=== PATIENT | male | born 1960 | race Caucasian/White ===

== ENCOUNTER → 2020-08-17 09:11 | Outpatient (CLI) | payer OTHER, SELFPAY ==
[2020-08-17 10:30] LABS: Alanine Aminotransferase 18 IU/L (<50); Albumin 4.4 g/dL (3.5-5.0); Albumin Globulin Ratio 1.3 (1.0-2.8); Alkaline Phosphatase 72 U/L (38-126); Aspartate Aminotransferase 23 IU/L (17-59); BUN Creatinine Ratio 23.1 (6-22); Bilirubin Total 0.6 mg/dL (0.2-1.3); Blood Urea Nitrogen 25 mg/dL (9-20); Calcium 9.5 mg/dL (8.4-10.2); Carbon Dioxide 29 mmol/L (22-32); Chloride 107 mmol/L (98-107); Cholesterol 166 mg/dL (140-199); Estimated Glomerular Filt Rate > 60.0 mL/min (>60); Globulin 3.4 g/dL (1.7-4.1); Glucose 103 mg/dL (80-110); HDL Cholesterol 33 mg/dL (40-60); HEMOLYSIS < 15 (0-50); LDL Cholesterol Calculated 123 mg/dL (<100); Potassium 4.6 mmol/L (3.4-5.1); Sodium 141 mmol/L (137-145); Total Protein 7.8 g/dL (6.3-8.2); Triglycerides 51 mg/dL (35-150)
[2020-08-17 10:59] LABS: Prostate Specific Antigen 0.707 ng/mL (0.10-4.00)
== END ==
PROVIDERS: PCP Family Medicine; Referring Provider Internal Medicine; Visit Provider Internal Medicine
DX: E78.2 Mixed hyperlipidemia (principal); Z85.46 Personal history of malignant neoplasm of prostate
CPT/HCPCS: 36415; 80053; 80061; 84153

== ENCOUNTER → 2020-11-15 11:03 | Outpatient (CLI) | payer OTHER, SELFPAY ==
[2020-11-15 12:19] LABS: COVID19 -Nasal RAPID Negative (Negative)
== END ==
PROVIDERS: PCP Internal Medicine; Visit Provider Specialist
DX: Z20.822 Contact with and (suspected) exposure to COVID-19 (principal)
CPT/HCPCS: 87635; C9803

== ENCOUNTER 2020-11-17 06:31 | Day surgery (SDC) | payer OTHER, SELFPAY ==
[2020-11-17] VITALS (9 sets, daily range): BP systolic 97–131; BP diastolic 56–70; PULSE 52–65; RESP 10–14; TEMP 36.2–36.4; O2SAT 93–98; BMI 25.4
--- NOTE | 2020-11-17 07:20 | SUR.OPER ---
Lithotomy on padded OR bed, head on pillow, arms secured on padded arm boards at <90 degrees abduction. Legs secured in padded yellow fins stirrups.
--- NOTE | 2020-11-17 07:22 | PM.PREOP ---
Pre-operative Note Interval Note History & Physical reviewed/Exam performed by Physician: Yes Changes to H&P: No
[2020-11-17] MEDS: LACTATED RINGERS 500 ML 25 ML IV (07:32)
[2020-11-17] MEDS: CEFAZOLIN 2 GM/100 ML FROZ.PIGGY IV (07:50)
[2020-11-17] MEDS: BELLADONNA/OPIUM SUPPOSITORIES 1 EACH PR (08:28)
--- NOTE | 2020-11-17 08:37 | P.OP_ITS ---
Operative Date/Time/Diagnoses Date of procedure: 11/17/20 Time of procedure: 08:37 Pre-op diagnosis: 1. Membranous urethral stricture 2. History of prostate cancer status post external beam radiotherapy Post-op diagnosis: same Procedure & Clinicians Procedure: 1. Cystoscopy and dilation urethral stricture 2. Complicated catheter placement Same procedure as scheduled: Yes Indications: 1. Membranous urethral stricture 2. History of prostate cancer status post external beam radiotherapy Surgeon: Tara Mckeon Click Yes if Unassisted: Yes Anesthesia Type: General Operative Notes Findings: 1. Normal caliber penile bulbar urethra. There mucosal changes consistent with radiation effect at the external sphincter. The membranous urethra was essentially occluded with a pinpoint aperture visualized. 2. Prostate-3.5 cm length with mild lateral lobe hyperplasia. 3. Bladder 1 to 2+ trabeculation with moderate amount free-floating cloudy sediment debris. No stone or tumor seen. Ureteral orifices normal position bilaterally. Closure Type: not applicable Specimen(s): none sent Applied: catheter (20 [place]orean silicone catheter modified to [place] tip) Estimated Blood Loss (mL): 1 Procedure in detail: Patient was positioned in supine and administered general anesthesia. He was then repositioned semi-lithotomy and the lower abdomen, groin, and genitalia were prepped and draped in sterile fashion. The 22 Ecuadorean panendoscope with 12 degree lens was then advanced and lower urinary tract with the findings as described above. A 0.35, floppy tip, super stiff guidewire was then advanced through the working port of the endoscope over this a 5 Ecuadorean pollock catheter was advanced to help stabilize the floppy tip. The guidewire with overlying [place] was then gently advanced proximally passing it through the strictured web. It was then advanced further for a generous coil to lie within the bladder. The panendoscope open [place] catheter was then backloaded off the guidewire. The serpentine urethral dilators were then utilized, starting at 12 Ecu[place]orean and successively dilating up to 20 Ecuadorean. The guidewire was then front loaded into the beak of the scope and the scope was advanced over the wire and advanced more proximally with the findings as described above. The scope was then used to gently fulcrum to the right, to the left, anterior, and posterior. The panendoscope was then backloaded off the guidewire. A [place] tip modification of a 20 [place]orean silicone catheter was then performed. Catheter was then advanced over the guidewire, the balloon was filled to 10 cc and the bladder contents were drained. The guidewire was then withdrawn and removed. The catheter was attached to gravity drainage. The patient was then repositioned in supine, was awakened, and was transferred to [facility] in stable condition. Post-operative Condition: stable Disposition: PACU Plan for aftercare: Discharge home
--- NOTE | 2020-11-17 09:56 | SUR.PHASEII ---
D/C instructions reviewed with SO. Stressed the importance of him not operating any vehicles including his boat. Instructions for leg bag provided along with ETOH wipes for cleaning tubing. Pt escorted to ED entrance in stable condition.
== END 2020-11-17 09:56 | disposition home or self-care (01) ==
PROVIDERS: PCP Internal Medicine; Referring Provider Specialist; Visit Provider Specialist
PROC: 0TJB8ZZ Inspection of Bladder, Via Natural or Artificial Opening Endoscopic (ICD-10-PCS; CPT 52000; principal; 2020-11-17 07:45)
DX: N35.913 Unspecified membranous urethral stricture, male (principal); Z85.46 Personal history of malignant neoplasm of prostate; N40.1 Benign prostatic hyperplasia with lower urinary tract symptoms; R35.0 Frequency of micturition; R35.1 Nocturia; R39.15 Urgency of urination
CPT/HCPCS: 52344; J0690; J1100; J2250; J2405; J2704; J3010

== ENCOUNTER → 2020-11-24 08:27 | Outpatient (CLI) | payer OTHER, SELFPAY ==
[2020-11-24 08:49] LABS: COVID19 -Nasal RAPID Negative (Negative)
== END ==
PROVIDERS: PCP Internal Medicine; Visit Provider Specialist
DX: Z20.822 Contact with and (suspected) exposure to COVID-19 (principal)
CPT/HCPCS: 87635; C9803

== ENCOUNTER → 2021-07-13 08:21 | Outpatient (CLI) | payer OTHER, SELFPAY | PROVIDERS: PCP Internal Medicine; Referring Provider Specialist; Visit Provider Specialist | DX: Z85.46 Personal history of malignant neoplasm of prostate (principal) | CPT/HCPCS: 36415; 84153 ==

== ENCOUNTER → 2022-08-01 08:47 | Outpatient (CLI) | payer OTHER, SELFPAY ==
[2022-08-01 10:25] LABS: Prostate Specific Antigen 0.982 ng/mL (0.10-4.00)
== END ==
PROVIDERS: PCP Internal Medicine; Referring Provider Specialist; Visit Provider Specialist
DX: R39.9 Unspecified symptoms and signs involving the genitourinary system (principal)
CPT/HCPCS: 36415; 84153

== ENCOUNTER 2022-11-05 09:18 | Day surgery (SDC) | payer OTHER, SELFPAY ==
--- NOTE | 2022-11-05 | PATH_ITS ---
[facility] Accession Number: [id number] No. of containers..01 Tissue . 01 Material submitted: . colon - SIGMOID MASS . 01 Clinical history: . SDC . 01 Diagnosis: Sigmoid Colon, Mass, Biopsy: Inflammatory polyp with superficial erosion and reactive changes consistent with trauma/prolapse. Negative for dysplasia and malignancy. MRV 11/11/2022 1605 Local . 01 Comment: A few large reactive lymphoid aggregates are present. This case was also reviewed by Dr. Sparks and Dr. Weems, who agree with the interpretation of a reactive lymphoid hyperplasia. Additional levels were examined. . 01 Electronically signed: . Franchesca Padilla MD, Pathologist NPI- [id number] . 01 Gross description: . SIGMOID MASS: Received in formalin are multiple fragment(s) of cody, soft tissue measuring 1.7 x 1.5 x 0.1 cm in aggregate submitted entirely in 1 cassette(s) /CPE 11/06/2022 0700 Local . 01 Pathologist provided ICD-10: Z12.11 . 01 CPT . 020487 Specimen Comment: A courtesy copy of this report has been sent to [phone] Performed at: 01 [facility] [address] [place] [address] [address], [place], [place] [id number] MD Antonino Bojorquez MD Phone: [phone]
[2022-11-05 10:07] VITALS: BMI 25.0
[2022-11-05 10:27] VITALS: BP 118/68; PULSE 64; RESP 16; TEMP 36.6; O2SAT 97
[2022-11-05] MEDS: LACTATED RINGERS 1,000 ML 200 ML IV (10:31)
--- NOTE | 2022-11-05 10:45 | PM.HP.1 ---
History of Present Illness History of Present Illness Date Patient Seen: 11/05/22 Time Patient Seen: 10:46 Chief complaint: MEC Narrative: The patient presents for colorectal screening. They have never had any previous examination for such. No personal or family history of colon cancer. On further history denies any recent gastrointestinal symptoms. No nausea, vomiting, abdominal pain, loss of appetite, unexplained weight loss, change in bowel habits, or blood per rectum. Patient History Medical History Diverticular disease of colon Erectile dysfunction following radiation therapy H/O renal calculi Hemorrhoid History of malignant neoplasm of prostate (08/01/16) History of urethral stricture Lower urinary tract symptoms (LUTS) Membranous urethral stricture Surgical History History of lithotripsy S/P radiation therapy (~2013) Family & Social History Family History Father Cancer Hypertension Mother Stroke Social History: household members significant other Tobacco & Substance use: Tobacco type cannabis/marijuana Smoking Status Current some day smoker alcohol intake never Substance Use Type marijuana Meds Home Medications and Allergies Home Medications Medication Instructions Recorded Confirmed Type alfuzosin 10 mg tablet,extended See Rx Instructions .Route 10/07/22 11/05/22 Rx release 24 hr .COMPLEX #90 tabs Allergies Allergy/AdvReac Type Severity Reaction Status Date / Time Sulfa (Sulfonamide Allergy Severe I break Verified 11/05/22 10:03 Antibiotics) out, I [SULFA (SULFONAMIDE don't know ANTIBIOTICS)] what happened, it doesn't work for Exam Vital Signs (past 8 hours): - 11/05/22 10:27 Temperature 97.8 F Pulse Rate 64 Respiratory Rate 16 Blood Pressure 118/68 Pulse Oximetry 97 Oxygen Delivery Method Room Air Oxygen Delivery Method Room Air Narrative Exam Narrative: General adult man alert oriented no acute distress Abdomen soft nontender nondistended Assessment & Plan Assessment & Plan narrative: The patient requires colorectal screening and colonoscopy is recommended. Technical details were discussed. Risks, benefits, alternatives explained. Risks including but not limited to myocardial infarction, aspiration, bleeding, pain, missed lesion, incomplete examination, need for further radiographic studies, colonic perforation, and need for major abdominal surgery were discussed. All questions were answered to their satisfaction, and they are in agreement with this plan. Time Spent With Patient Critical Care time: I spent a total of [] minutes of critical care time on this patient's care today; this time is exclusive of procedural time.
--- NOTE | 2022-11-05 10:46 | PM.OP.COLON ---
Operative Date/Time/Diagnoses Date of procedure: 11/05/22 Time of procedure: 10:46 Pre-op diagnosis: Colorectal screening Post-op diagnosis: other (Colon cancer) Procedure & Clinicians Study performed: Sigmoidoscopy Same procedure as scheduled: Yes Indications: Colorectal screening Surgeon: Valentino Muñoz Procedure Notes Procedure in detail: The history and physical was performed/updated and the patient is ASA class is 2. The procedure was discussed in detail with the patient. Potential risks complications including infection, bleeding, missed diagnosis, perforation, need for surgery, and were explained. Their questions were answered and informed consent was obtained. Patient was brought to the procedure room and placed standard monitoring equipment. The patient's vital signs were monitored continuously throughout the entire procedure. Prior to starting time-out was performed. The patient was placed in the left lateral recumbent position. Procedural sedation was administered by anesthesia. Examination began with a thorough inspection of the perianal area there was no evidence of fissures, fistulae, external hemorrhoids or cutaneous malignancy. The colonoscopy scope was then placed into the anal canal and was advanced forward. At 20 cm from the anal verge there was a large obstructing mass. Was friable portions of it were removed with electrocautery. I was unable to advance the scope beyond this level. The area distal to the tattoo was infiltrated with 3 mL of Stacey ink. The patient tolerated the procedure well. They will be discharged once criteria are met. The prep was of good/excellent quality. The withdrawl time was * minutes. Specimen(s): other (Sigmoid mass) Impression: Concerning for colon cancer Post-procedure Recommendations: High fiber diet Plan for aftercare: Follow-up in surgical office within the next 2 weeks Disposition: same day surgery
[2022-11-05 11:11] VITALS: BP 92/58; PULSE 51; RESP 12; TEMP 36.6; O2SAT 96
[2022-11-05 11:16] VITALS: BP 99/63; PULSE 50; RESP 11; TEMP 36.6; O2SAT 96
[2022-11-05 11:21] VITALS: BP 107/70; PULSE 46; RESP 10; TEMP 36.6; O2SAT 95
[2022-11-05 11:32] VITALS: BP 134/81; PULSE 45; RESP 11; TEMP 36.4; O2SAT 96
== END 2022-11-05 12:27 | disposition home or self-care (01) ==
PROVIDERS: PCP Internal Medicine; Referring Provider Surgery; Visit Provider Surgery
PROC: 0DJD8ZZ Inspection of Lower Intestinal Tract, Via Natural or Artificial Opening Endoscopic (ICD-10-PCS; CPT 45378; principal; 2022-11-05 10:30)
DX: Z12.11 Encounter for screening for malignant neoplasm of colon (principal); K63.5 Polyp of colon
CPT/HCPCS: 45384; J2704; J3010

== ENCOUNTER → 2022-11-07 10:37 | Outpatient (CLI) | payer OTHER, SELFPAY ==
--- NOTE | 2022-11-07 10:39 | DI.CT.S_ITS ---
PROCEDURE: CT CHEST ABD PEL W CON INDICATIONS: Other specified diseases of intestine TECHNIQUE: After the administration of oral and intravenous contrast, axial sections acquired from the supraclavicular neck to the pubic symphysis. Coronal and sagittal reformats were performed. For radiation dose reduction, the following was used: automated exposure control, adjustment of mA and/or kV according to patient size. COMPARISON: [facility], CT, PELVIS WITHOUT CONTRAST, 11/19/2007, 12:48. FINDINGS: Image quality: Excellent. CHEST: Lower Neck: No enlarged lymph nodes. Thyroid: Within normal limits. Axillae: No enlarged lymph nodes. Chest Wall: Unremarkable. Lungs and Airways: No consolidation or suspicious nodules. Mild apically predominant emphysema. 6 mm left apically pulmonary nodule. Subpleural sessile nodule within the left lower lobe posteriorly measuring 7 mm transverse by 3 mm anteroposterior. Pleura: No pneumothorax or pleural effusions. Heart: Heart size is normal. No pericardial effusion. Mild calcification of the coronary vasculature. Thoracic Vessels: Mild fusiform aneurysmal dilatation of the ascending thoracic aorta measuring 46 mm. Mediastinum and Khadijah: No enlarged lymph nodes. Esophagus: No wall thickening. No hiatal hernia. ABDOMEN: Liver: Unremarkable. Gallbladder: Unremarkable. Biliary ducts: Unremarkable. Pancreas: Unremarkable. Spleen: Unremarkable. Adrenal Glands: Unremarkable. Kidneys and Ureters: Bilateral renal cysts. No hydronephrosis. Stomach and Bowel: Stomach and small bowel are within normal limits. There is moderate focal thickening within the descending/sigmoid colon junction with an apparent region of superimposed nodularity measuring 15 mm. Peritoneum: No abnormal intraperitoneal fluid. No free air. Ventral Wall: No hernia. Abdominal Nodes: No retroperitoneal or mesenteric adenopathy by size criteria. Vessels: Aorta and inferior vena cava are normal in size. PELVIS: Pelvic Organs: Unremarkable. Bladder: There is thickening of the left superior urinary bladder, as before. No further evidence of colovesical fistula formation. Pelvic Nodes: No enlarged lymph nodes. Miscellaneous: No inguinal hernias are seen. Bones: Unremarkable. IMPRESSION: 1. Apparent resolution of colovesical fistula. 2. Nodular thickening of the descending/sigmoid colon junction. Colonoscopy is recommended to assess for neoplasm. 3. Left urinary bladder thickening. 4. Pulmonary nodules. Follow-up is recommended as below. 5. Coronary artery disease. 6. Ascending thoracic aortic aneurysm. Fleischner Society criteria for SOLID lung nodule followup. Nodule size (mm)Low-risk patientHigh-risk patient<6 (single or multiple)No routine followup.Optional CT at 12 months. 6-8 (single or multiple)CT at 6-12 months, then optional CT at 18-24 mo.CT at 6-12 months, then CT at 18-24 months. >8 (single)CT, PET-CT, or biopsy at 3 months. Same as for low-risk pts. >8 (multiple)CT at 3-6 months, then optional CT at 18-24 mo.CT at 3-6 months, then CT at 18-24 months. Fleischner Society criteria for SUB-SOLID lung nodule followup. Solitary pure ground-glass nodules<6 mm (ground glass or part solid)No followup needed. 6 mm or larger (ground glass)CT at 6-12 months to confirm persistence, then CT every 2 years until 5 years.6 mm or larger (part solid)CT at 3-6 months to confirm persistence, then annual CT until 5 years if unchanged and solid component remains <6 mm. Multiple sub-solid nodules<6 mmCT at 3-6 months, then CT consider at 2 & 4 years for high risk patients. [address] at 3-6 months. Subsequent management based on most suspicious lesions. Recommendations do not apply to lung cancer screening, patients with immunosuppression, or patients with known primary cancer. Dictated by: Joaquin Verdugo M.D. on 11/07/2022 at 16:04 Transcribed by: DENIS on 11/07/2022 at 16:08 Approved by: Joaquin Verdugo M.D. on 11/07/2022 at 16:39
[2022-11-07 11:18] LABS: Alanine Aminotransferase 20 IU/L (<50); Albumin 4.3 g/dL (3.5-5.0); Albumin Globulin Ratio 1.3 (1.0-2.8); Alkaline Phosphatase 77 U/L (38-126); Aspartate Aminotransferase 23 IU/L (17-59); BUN Creatinine Ratio 14.7 (6-22); Bilirubin Total 0.8 mg/dL (0.2-1.3); Blood Urea Nitrogen 16 mg/dL (9-20); Carbon Dioxide 30 mmol/L (22-32); Chloride 103 mmol/L (98-107); Estimated Glomerular Filt Rate > 60 mL/min (>60); Globulin 3.4 g/dL (1.7-4.1); Glucose 93 mg/dL (80-110); HEMOLYSIS < 15 (0-50); Potassium 4.3 mmol/L (3.4-5.1); Sodium 140 mmol/L (137-145); Total Protein 7.7 g/dL (6.3-8.2)
== END ==
PROVIDERS: PCP Internal Medicine; Referring Provider Surgery; Visit Provider Surgery
DX: K63.89 Other specified diseases of intestine (principal); I77.810 Thoracic aortic ectasia; I25.10 Atherosclerotic heart disease of native coronary artery without angina pectoris; R91.8 Other nonspecific abnormal finding of lung field; J43.9 Emphysema, unspecified; N28.1 Cyst of kidney, acquired
CPT/HCPCS: 36415; 71260; 74177; 80053; 82378; Q9967

== ENCOUNTER → 2022-11-07 13:35 | Outpatient (ROUT) | payer OTHER, SELFPAY ==
[2022-11-07 14:28] LABS: Carcinoembryonic Antigen 0.8 ng/mL (0.1-3.0)
== END ==
PROVIDERS: PCP Internal Medicine; Visit Provider Surgery
DX: K63.89 Other specified diseases of intestine (principal)
CPT/HCPCS: 82378

== ENCOUNTER 2022-11-29 11:26 | Inpatient (IN) | payer OTHER, SELFPAY ==
[2022-11-22 08:30] VITALS: BMI 25.0
[2022-11-29] VITALS (13 sets, daily range): BP systolic 140–166; BP diastolic 74–99; PULSE 66–94; RESP 14–20; TEMP 36.1–36.6; O2SAT 94–98; BMI 25.0; BMI 25.9
--- NOTE | 2022-11-29 | PATH_ITS ---
[facility] Accession Number: [id number] No. of containers..02 Tissue . 01 Material submitted: . PART A: colon - DESCENDING COLON PART B: colon - ANASTOMOTIC DONUTS . 01 Diagnosis: A. Descending Colon, Segmental Resection: Segment of colon with polypoid chronic, moderately active colitis (inflammatory polyp) associated with diverticulum, consistent with diverticular disease-associated colitis. Twenty-six (26) benign pericolonic lymph nodes. Negative for dysplasia or malignancy. . B. Colon, Anastomotic Donuts: Colonic tissue with no diagnostic abnormality. Negative for dysplasia or malignancy. [facility] 12/04/2022 1346 Local . 01 Electronically signed: . aPddy Sims MD, PhD, Pathologist NPI- [id number] . 01 Gross description: . A. Received in formalin labeled with the patient's name, and descending colon consists of an unoriented, previously opened fragment of colon measuring 10.7 cm in length by 4.2 cm in average circumference. The serosa is mostly covered by yellow adipose with no perforations grossly identified. The mucosa is significant for an area with numerous cody polypoid structures ranging from 0.3 to 0.7 cm in greatest dimension, across an area measuring 6.2 cm in length, and grossly approaches a margin by 0.3 cm. This nearest margin is inked blue while the opposite margin is inked black. This nodular area measures 4.3 cm from the black margin. The area of roughened adipose possibly consistent with radial margin is inked green. A firm area of serosa beneath the attached adipose is inked orange. The wall adjacent to the nodular area is diffusely thickened measuring up to 0.8 cm in greatest dimension. Also identified is a large presumed diverticulum measuring up to 1.7 cm in depth with adjacent thickened wall. The orange-inked firm serosa is located adjacent to this outpouching. No lesions grossly extend beyond the wall, and the nodular areas appear to be grossly contained to the mucosa. The remaining mucosa is velvety with normal appearing folds with no polyps, lesions or diverticula identified. Palpation of the adjacent adipose reveals 25 cody lymph node candidates ranging from 0.2 to 1.3 cm in greatest dimension. General Partner sections are submitted as follows: A1: Black margin en face. A2: General Partner green margin en face. A3: Blue margin perpendicular to nodular area. A4-A5: Nodular mucosa, large diverticulum with orange-inked serosa and blue margin perpendicular, composite section. A6-A7: Nodular area to normal mucosa. A8: Additional customer service representative teacher nodular area. A9: General Partner normal mucosa. A10: Three intact lymph node candidates. A11: Four intact lymph node candidates. A12: Three intact lymph node candidates. A13: Four intact lymph node candidates. A14: Four intact lymph node candidates. A15: Four intact lymph node candidates. A16: Four intact lymph node candidates. B. Received in formalin labeled with the patient's name, and anastomotic donut consists of two circular excisions of colon, the first measures 2.2 x 1.9 x 0.7 cm and has cody, slightly nodular mucosa with no discrete lesions grossly identified. This fragment margin is inked blue. The second fragment measures 1.7 x 1.5 x 0.7 cm with cody velvety mucosa, and is inked green. General Partner fragments of the first fragment are submitted in B1 while sections of the second fragment are submitted in B2. ([id number]) /MRV 12/03/2022 1319 Local . 01 Pathologist provided ICD-10: K57.32 . 01 CPT . 165244, [id number] Specimen Comment: A courtesy copy of this report has been sent to [phone] Performed at: 01 [facility] [address] [place] [address], [place], [place] [id number] MD Antonino Bojorquez MD Phone: [phone]
--- NOTE | 2022-11-29 | DI.RAD.S_ITS ---
PROCEDURE: XR ABDOMEN 1V INDICATIONS: BILATERAL URETAL STENT PLACEMENT TECHNIQUE: Two intra-operative images acquired by the Urology service. COMPARISON: [facility], , ABDOMEN 1 VIEW, 07/04/2007, 3:47. Conclusion: Bilateral ureteral stent placement. Dictated by: Edi Faye M.D. on 11/29/2022 at 14:59 Approved by: Edi Faye M.D. on 11/29/2022 at 14:59
[2022-11-29] MEDS: LACTATED RINGERS 1,000 ML 100 ML IV ×2 (12:34→14:48)
[2022-11-29 12:41] LABS: COVID19 -Nasal RAPID Negative (Negative)
--- NOTE | 2022-11-29 12:59 | PM.PREOP ---
Pre-operative Note Interval Note History & Physical reviewed/Exam performed by Physician: Yes Changes to H&P: No
--- NOTE | 2022-11-29 13:07 | PM.PREOP ---
Pre-operative Note COVID-19 Criteria for continued procedure: Expected advancement of disease process, Deterioration of the patient's condition or overall health, Delay expected to result in less-positive ultimate med/surg outcome and Non-surgical alternatives not available or appropriate per current SOC Interval Note History & Physical reviewed/Exam performed by Physician: Yes Changes to H&P: No
[2022-11-29] MEDS: PIPERACILLIN/TAZO 4.5 GM in SODIUM CHLORIDE 0.9% 100 ML IV ×2 (13:20→17:25)
--- NOTE | 2022-11-29 13:50 | SUR.OPER ---
Lithotomy on padded OR bed. Custar Pad Positioner under torso. Head on pillow, arms padded and tucked at sides. Legs secured in padded yellow fins stirrups.
[2022-11-29] MEDS: BUPIVACAINE 0.25% (PF) VIAL 30 ML INJ (14:47)
[2022-11-29] MEDS: PIPERACILLIN/TAZO 3.375 GM in SODIUM CHLORIDE 0.9% 100 ML IV (15:20)
[2022-11-29] MEDS: ACETAMINOPHEN IV 1,000 MG/100 ML VIAL 400 MG IV (16:42)
[2022-11-29] MEDS: BUPIVACAINE LIPOSOME 266 MG/20 ML VIAL INJ (17:00)
[2022-11-29] MEDS: OXYCODONE IR 5 MG TABLET PO (18:08)
--- NOTE | 2022-11-29 18:12 | PC.NURSE ---
Day shift: Pt not in room 222 at this time (1814).
[2022-11-29] MEDS: ONDANSETRON 4 MG/2 ML INJ IV ×2 (18:13→21:45)
--- NOTE | 2022-11-29 18:22 | SUR.PHASEI ---
pt emesis x2 medication given
--- NOTE | 2022-11-29 18:23 | SUR.PHASEI ---
attempted to call report
[2022-11-29] MEDS: HYDROMORPHONE 2 MG INJ IV (18:29)
--- NOTE | 2022-11-29 18:39 | PC.NURSE ---
Day shift: Pt in room from PACU at approx 1840. Pt's SPouse in room now also. Dr Muñoz had a conversation with Spouse at approx 1830 in room 222 as well. A&Ox4. VS WNL. 2L NC 95%. ABD binder in place. ABD dressing CDI. Miramontes patent with light red wine colored output. Oriented to room and call light.
[2022-11-29] MEDS: KETOROLAC 30 MG/ML VIAL IV ×2 (18:58→23:19)
--- NOTE | 2022-11-29 19:19 | P.OP_ITS ---
Operative Date/Time/Diagnoses Date of procedure: 11/29/22 Time of procedure: 19:19 Pre-op diagnosis: colonic mass Post-op diagnosis: same Procedure & Clinicians Procedure: laparoscopic assisted left hemicolectomy Same procedure as scheduled: Yes Indications: 61-year-old man with a history of sigmoid colectomy for diverticular disease and pelvic radiation for prostate cancer is found to have a large friable polyp within the descending colon at 20 cm from the anal verge. Biopsy demonstrates a tubular adenoma with erosive mucosa CT demonstrates thickening of the descending colon concerning in its appearance for colonic adenocarcinoma. Polyp was unable to be completely excised endoscopically and he is here for segmental colectomy for presumed malignancy. Surgeon: Valentino Muñoz Scientific Research Manager: Terra Hdez Anesthesia Type: General Operative Notes Findings: Dense pelvic adhesions. The descending colon is adherent to the left ureter and the pelvic wall including the iliac vessels Estimated Blood Loss (mL): 100 Procedure in detail: Patient was brought to the operating room and placed supine on the table. Bilateral lower extremity compression devices were applied. General anesthesia was induced and he was intubated with an endotracheal tube. He received Zosyn prior to skin incision. Time-out was performed. Patient was then prepped and draped in sterile fashion. Dr. Mckeon of urology placed lighted left ureteral stent please refer to his dictation for further detail. After the completion of the ureteral stent placement we proceeded with the sigmoid colectomy. An infraumbilical incision was made the fascia was grasped elevated sharply incised and the abdomen was entered atraumatically. Pneumoperitoneum was established. There were adhesions between the omentum and the anterior abdominal wall. Additional 5 mm ports were placed in the suprapubic position the left lower quadrant and the right lower quadrant. These adhesions between the omentum and the anterior abdominal wall were carefully taken down with the LigaSure in order to create working space. General inspection of the abdomen was made there was no evidence of distant metastasis involving the liver or the peritoneum. Tattoo was visible in the proximal rectum and there appeared to be a thickening of the descending colon. Dissection was begun by taking the descending colon off the left lateral abdominal wall by incising the ligament of Treitz and this was continued until the splenic flexure. Attention was then turned to the pelvis where he had a previous sigmoid colectomy as well as pelvic radiation for prostate cancer. There were dense adhesions between the descending colon and the lateral pelvic wall. These adhesions were carefully lysed with sharp dissection. Despite lysis of adhesions I could not clearly identify the left ureter and in addition the colon was adherent to the pelvic sidewall overlaying the iliac vessels. Therefore the procedure was converted to an open operation. Midline incision was made and Bookwalter was placed to assist with retraction. Once adequate exposure was obtained the ureter was palpable with its stent in place. It was actually adherent to the posterior and lateral wall of the descending colon and was carefully off the colon and kept posterior out of harm's way. The adhesions between the colon and the underlying iliac vessels were then carefully dissected in order to mobilize the colon medially. There was a firm mass within the distal descending colon and there was no appreciable mesenteric lymphadenopathy. A point of proximal transection was made proximally 10 cm above the level of the mass. A window within the mesentery was made and then the colon was divided with the TA stapler. Using this as a handle the colon was retracted. The the YURI pedicle was skeletonized near its takeoff from the aorta and it was doubly ligated with silk suture and then divided. The mesentery was then divided towards the pelvis carefully to keep the left ureter out of harm's way. The dissection of the mesentery was then carried down to the level of the proximal rectum. Below the level of the mass there was clearly tattoo present and it was soft and pliable here and colon was then again divided using the TA stapler. At this point the specimen was pas sed off the field labeled descending colon. The remainder of the left colon needed to be further mobilized in order to reach the pelvis without tension. The splenic flexure was formally mobilized. A window into to the gastro colic ligament was made in the lesser sac was opened. The dissection was then carried around the splenic flexure taking the attachments between the spleen and the colon down and this provided excellent mobility of the transverse and left colon. The proximal segment of colon now easily reached the pelvis without tension. The staple line was excised and a 29 mm anvil was then placed into the open end of colon. A pursestring suture was fashion with PDS suture. The end of the bowel was well perfused. Next the sizers were placed into the rectum and a 29 mm stapler was easily passed into the rectum. Under direct visualization the point of the stapler was deployed through the anterior rectal wall. The anvil and stapler were then mated under direct visualization and the anastomosis end to end was fashioned. The stapler was removed and inspection demonstrated 2 anastomotic donuts which were both complete. The colon was then insufflated while holding the anastomosis beneath submerged beneath saline and there was no evidence of anastomotic leak. Visual inspection with the colonoscope demonstrated a widely patent anastomosis without hemorrhage. Colon was then desufflated. The specimen was opened on the back table and it demonstrates an extensive polyp within the descending colon which is inflammatory in nature. There is dense concentric thickening perhaps stricture of the colon associated with the polyp. The abdomen was irrigated with multiple L of saline and hemostasis was verified the irrigant was clear. The fascia was then closed with 1. PDS from above and below. The subcutaneous tissue was reapproximated with 3- 0 Vicryl and skin closed with donna. Prior to fascial closure Exparel was infiltrated into the peritoneum. At the end of the operation the ureteral stents were removed and the Gustafson catheter was left in place. He was extubated transferred to recovery room in stable condition. The assistance of Dr. Terra Hdez was essential for this operation to provide assistance with exposure and in the formation of the colorectal anastomosis. Complications: none Post-operative Condition: stable Disposition: same day surgery
[2022-11-29] MEDS: HYDROMORPHONE 0.5 MG INJ 1 MG IV ×2 (20:16→23:19)
[2022-11-29] MEDS: ACETAMINOPHEN 325 MG TABLET 650 MG PO (23:19)
[2022-11-30] VITALS (13 sets, daily range): BP systolic 111–155; BP diastolic 59–88; PULSE 64–86; RESP 16–17; TEMP 36.6–36.8; O2SAT 96–99
[2022-11-30] MEDS: HYDROMORPHONE 0.5 MG INJ 1 MG IV ×2 (01:18→05:46)
[2022-11-30] MEDS: PROCHLORPERAZINE 10 MG/2 ML VIAL IV ×2 (01:23→20:59)
[2022-11-30] MEDS: ONDANSETRON 8 MG in SODIUM CHLORIDE 0.9% 50 ML 216 MG IV (03:26)
[2022-11-30] MEDS: LORazepam 2 MG/ML INJ 0.5 MG IV ×2 (05:36→22:12)
[2022-11-30] MEDS: SCOPOLAMINE 1 PATCH TOP (05:37)
[2022-11-30] MEDS: KETOROLAC 30 MG/ML VIAL IV ×3 (06:20→17:17)
[2022-11-30 06:32] LABS: Add Manual Diff / Slide Review NO; Basophils Absolute Auto 0 /uL (0-100); Eosinophils Absolute Auto 0 /uL (0-450); Hematocrit 39.9 % (41-53); Hemoglobin 13.5 g/dL (13.5-17.5); Lymphocytes Absolute Auto 500 /uL (1100-4500); Lymphocytes Percent Auto 3.4 % (25-40); Mean Corpuscular HGB Conc 33.8 % (30-36); Mean Corpuscular Hemoglobin 30.2 PG (26-34); Mean Corpuscular Volume 89.3 fL (80-100); Monocytes Absolute Auto 1300 /uL (0-900); Monocytes Percent Auto 8.3 % (3-14); Neutrophils Absolute Auto 13900 /uL (1500-7000); Neutrophils Percent Auto 88.3 % (50-75); Platelet Count 228 X10^3/uL (150-400); Red Blood Cell Count 4.47 X10^6/uL (4.5-5.9); Red Cell Distribution Width 13.3 % (11.6-14.8); White Blood Cell Count 15.7 X10^3/uL (4.5-11.0)
[2022-11-30 06:33] LABS: BUN Creatinine Ratio 16.5 (6-22); Blood Urea Nitrogen 18 mg/dL (9-20); Calcium 8.6 mg/dL (8.4-10.2); Carbon Dioxide 26 mmol/L (22-32); Chloride 107 mmol/L (98-107); Estimated Glomerular Filt Rate > 60 mL/min (>60); Glucose 145 mg/dL (80-110); HEMOLYSIS < 15 (0-50); Magnesium 1.7 mg/dL (1.6-2.3); Phosphorous 3.5 mg/dL (2.3-3.7); Potassium 3.8 mmol/L (3.4-5.1); Sodium 140 mmol/L (137-145)
[2022-11-30] MEDS: OXYCODONE IR 5 MG TABLET PO (09:25)
[2022-11-30] MEDS: ENOXAPARIN 40 MG/0.4 ML SYRINGE SUBCUT (09:25)
[2022-11-30] MEDS: TAMSULOSIN 0.4 MG CAPSULE PO (09:25)
--- NOTE | 2022-11-30 09:34 | CM.DANOTE ---
Initial Discharge Assessment Note: Case reviewed, met with patient. Introduced self and role. Payer: [facility] and self pay PCP: Dr Salas Stephens 61 year old admitted yesterday and underwent a lap left hemicolectomy. He is quietly resting in bed. Patient lives in [place] with his Significant Other. 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 He drives and is independent in ADLs. Plan: When medically stable, return home to [facility] Discharge Planning/Care Management CM Discharge Assessment Start: 11/30/22 09:32 Freq: Status: Active Protocol: Document 11/30/22 09:32 SJ (Rec: 11/30/22 09:34 [id number]) Discharge Planning Assessment Assigned Unit Operator Shelley Kulkarni RN/PARKP Advance Directives? Yes Advance Directives on File No History Provided By Patient,Medical Record Prior Living Arrangements House Household Members significant other Type of transporation used prior to Drives own vehicle admit Independent with ADL's Yes: employed as commercial real estate paralegal Is patient alert and oriented? Yes Caregiver for Another No Barriers to Discharge No Discharge Plan Home Referrals Initiated None needed Review Status In Process Next Review Type Continued Stay Review Pre-Anesthesia Assessment Start: 11/22/22 08:30 Freq: Status: Complete Protocol: Document 11/22/22 08:30 CAB (Rec: 11/22/22 09:27 CAB [id number]) Pre-Anesthesia Assessment Patient Information Reviewed Via Phone Assessment Assessment Completed With Patient Primary Care Provider Salas Stephens Seen Specialist in Last 12 Months Yes Specialist Seen General surgeon,Urologist Primary Language Indonesian Road Design Draftsperson Required No Height 182.88 cm Weight 83.915 kg Body Mass Index (BMI) 25.0 Hearing Ability Normal Visual Assist Magnifying Glass Dentition Type Teeth, Natural Present Barriers to Learning None Hx Anesthesia Reactions No Hx Family Anesthesia Reaction No Hx Malignant Hyperthermia No Hx Blood Transfusions No Hx Blood Transfusion Reaction No Anesthesia Review Requested No Licensed Psychologist Manager No alcohol intake never Smoking Status Current some day smoker Tobacco type cannabis/marijuana Substance Use Type marijuana Comment Pt advised not to smoke marijuana 24 hours prior Pain Present Denied Pain History of Falling (Recent or History of No ) Patient is completely paralyzed or No completely immobile Mental Status Oriented to own ability Is patient on oxygen? No Does patient have TIWARI/SOB No Hx Sleep Apnea No CPAP/BIPAP use not prescribed Currently Taking a Beta [place] No Can You Climb a Flight of Stairs Without Yes SOB Hx Chest Pain No Hx SOB No Hx Syncope or Dizziness No Anti-Coagulant Therapy No Has a Inclusion Teacher No Cardiac Testing No Hx Pacemaker/ICD No Pacemaker Rep Required? No Cardiac Clearance Received Not Applicable Comment medical social worker Diet Type At Home Regular Dysphagia No Gastrointestinal Symptoms None Chronic UTI No Urinary Catheter Present No Hx Urinary Self Catheterization No Diabetes No Hx Drug Resistant Organism No Presence of External or Internal Medical No Devices Have you had any close contact with No someone diagnosed with COVID-19? Received a COVID vaccine? No Marital Status Single Lives With significant other Current Living Arrangements House Number of Floors (Floors) One Floor Support System Significant Other Does the Patient Have Assistance After Yes Surgery Patient Discharge Plan Description Return Home Comment Pt advised 1-2 day length of stay per sureon Feels Safe in Current Environment Yes Been Physically Hurt or Threatened By a No Person in Current Environment Do you have thoughts of harming yourself None or others? Are you currently considering suicide? No Do you have a plan to hurt yourself or No Plan others? Do You Have Any Spiritual Beliefs That No May Affect Your HC Choices? Do You Have Any Cultural Practices That No May Affect Your HC Choices? Who Can We Speak to About Patient's Care Family, friends Identifying Code for Release of Patient Declines to issue Information Health Care Proxy/Next of Kin Marce (S.O.) Health Care Proxy Emergency Contact Name Sd (sister) Emergency Contact Advance Directives? Yes Advance Directives on File No Requested Patient Bring Advanced Yes Directives DOS Power of Die Maker Electronic No PAC Instructions Medications to take/avoid,No ETOH/petroleum product on skin DOS,NPO,Post-op transportation,Pre-surgical wash,Sturdy shoes/comfortable clothes,Do not bring valuables and remove jewelry
[2022-11-30] MEDS: MAGNESIUM CHLORIDE 64 MG TABLET 128 MG PO (10:33)
[2022-11-30] MEDS: ACETAMINOPHEN 325 MG TABLET 650 MG PO ×2 (11:01→17:17)
[2022-11-30] MEDS: LACTATED RINGERS 1,000 ML 100 ML IV (14:48)
--- NOTE | 2022-11-30 14:53 | PC.NURSE ---
Day shift: Pt OOB and ambulating in halls with this typewriter ribbon winder. He ambulated to room 204 and back to room 225 then back to his room. Steady on his feet. Denied any nausea or dizziness. VS remain WNL. He did use FWW but he does not this to use FWW.
--- NOTE | 2022-11-30 18:29 | PC.NURSE ---
Day shift: Pt has ambulated the entire AC unit today 3 times. He tolerated it well. Steady on his feet. Denies any SOB with the ambulation and at rest.
--- NOTE | 2022-11-30 18:53 | P.PN_ITS ---
Subjective Subjective Date Patient Seen: 11/30/22 Time Patient Seen: 18:54 Interval history: Patient doing very well. Nausea overnight now improved. He has walked around in the [place] several times. Pain relatively well controlled. Feeling a little bit hungry even. Exam Vital Signs (past 8 hours): - 11/30/22 11:00 11/30/22 14:15 11/30/22 14:14 Temperature 98.3 F Pulse Rate 75 Respiratory Rate 16 Blood Pressure 114/59 L Pulse Oximetry 98 97 98 Oxygen Delivery Method Room Air Room Air Oxygen Flow Rate 0 11/30/22 18:30 Temperature Pulse Rate Respiratory Rate Blood Pressure Pulse Oximetry 97 Oxygen Delivery Method Room Air Oxygen Flow Rate Oxygen Delivery Method Room Air Oxygen Flow Rate 0 Const General: cooperative, healthy appearing and comfortable GI Other: Wound is clean dry and intact. Abdomen mildly distended. Objective Labs 11/30/22 04:55 11/30/22 04:55 Labs: Laboratory Results - last 24 hr 11/30/22 11/30/22 04:55 04:55 WBC 15.7 H RBC 4.47 L Hgb 13.5 Hct 39.9 L MCV 89.3 MCH 30.2 MCHC 33.8 RDW 13.3 Plt Count 228 Neut % (Auto) 88.3 H Lymph % (Auto) 3.4 L [place] % (Auto) 8.3 Eos % (Auto) 0.0 L Baso % (Auto) 0.0 Neut # (Auto) 17191 H Lymph # (Auto) 500 L [place] # (Auto) 1300 H Eos # (Auto) 0 Baso # (Auto) 0 Sodium 140 Potassium 3.8 Chloride 107 Carbon Dioxide 26 BUN 18 Creatinine 1.09 Estimated GFR > 60 BUN/Creatinine Ratio 16.5 Glucose 145 H Calcium 8.6 Phosphorus 3.5 Magnesium 1.7 PFSH Medical History Anxiety about health Diverticular disease of colon Erectile dysfunction following radiation therapy H/O renal calculi Hemorrhoid History of malignant neoplasm of prostate (08/01/16) History of urethral stricture Kidney stones Lower urinary tract symptoms (LUTS) Membranous urethral stricture Pneumonia Surgical History History of excision of pilonidal cyst History of lithotripsy Hx of colectomy Hx of colonoscopy (11/05/22) Hx of cystoscopy (11/17/20) Hx of hernia repair S/P radiation therapy (~2013) Family History Father Cancer Hypertension Mother Stroke Social History marital status: unmarried,single household members: significant other Smoking Status: Current some day smoker alcohol intake: never substance use type: marijuana caffeine: Yes Assessment & Plan Assessment & Plan narrative: Postop day 1 status post sigmoid resection laparoscopic converted to open. Nausea overnight now improved with scopolamine patch and decreased Dilaudid needs. Patient is tolerating a clear liquid diet and feeling a little bit hungry even this evening. Gustafson still in place. We will plan tomorrow to start alfuzosin home med or formulary equivalent. Continue DVT prophylaxis and start a regular diet. IV will be saline locked Quality VTE Deep Vein Thrombosis/Pulmonary Embolism Present on Admission: No
[2022-12-01] VITALS (7 sets, daily range): BP systolic 124–143; BP diastolic 68–75; PULSE 64–91; RESP 18; TEMP 36.9–37.3; O2SAT 95–98
[2022-12-01] MEDS: ACETAMINOPHEN 325 MG TABLET 650 MG PO (01:01)
[2022-12-01] MEDS: LORazepam 2 MG/ML INJ 0.5 MG IV (01:05)
[2022-12-01 05:08] LABS: Add Manual Diff / Slide Review NO; Basophils Absolute Auto 0 /uL (0-100); Eosinophils Absolute Auto 0 /uL (0-450); Eosinophils Percent Auto 0.3 % (2-4); Hematocrit 35.8 % (41-53); Hemoglobin 12.3 g/dL (13.5-17.5); Lymphocytes Absolute Auto 800 /uL (1100-4500); Lymphocytes Percent Auto 7.2 % (25-40); Mean Corpuscular HGB Conc 34.2 % (30-36); Mean Corpuscular Hemoglobin 30.7 PG (26-34); Mean Corpuscular Volume 89.6 fL (80-100); Monocytes Absolute Auto 900 /uL (0-900); Monocytes Percent Auto 7.8 % (3-14); Neutrophils Absolute Auto 9300 /uL (1500-7000); Neutrophils Percent Auto 84.7 % (50-75); Platelet Count 202 X10^3/uL (150-400); Red Cell Distribution Width 13.2 % (11.6-14.8)
[2022-12-01 05:35] LABS: BUN Creatinine Ratio 13.4 (6-22); Blood Urea Nitrogen 13 mg/dL (9-20); Calcium 8.4 mg/dL (8.4-10.2); Carbon Dioxide 30 mmol/L (22-32); Chloride 106 mmol/L (98-107); Estimated Glomerular Filt Rate > 60 mL/min (>60); Glucose 114 mg/dL (80-110); HEMOLYSIS < 15 (0-50); Potassium 3.5 mmol/L (3.4-5.1); Sodium 138 mmol/L (137-145)
[2022-12-01] MEDS: TAMSULOSIN 0.4 MG CAPSULE PO (08:46)
[2022-12-01] MEDS: ENOXAPARIN 40 MG/0.4 ML SYRINGE SUBCUT (08:46)
[2022-12-01] MEDS: POTASSIUM CHLORIDE 20 MEQ TAB 40 MEQ PO (09:30)
--- NOTE | 2022-12-01 11:56 | PT-IP ANOTE ---
No need for PT per nursing.
--- NOTE | 2022-12-01 13:20 | P.DS_ITS ---
History of Present Illness History of Present Illness Chief complaint: INPT Narrative: Mr Waggoner is a 61-year-old man with a new diagnosis of descending colon mass. He underwent a routine screening colonoscopy November 05, 2022.? It demonstrated a large mass within the descending colon at 20 cm from the anal verge.? Mass was friable and near obstructing to the point where could not advance beyond the level of the mass.? Portions of the mass were removed with electrocautery and it was tattooed with Stacey ink.? Pathology demonstrates inflammatory polyp with superficial erosion and reactive changes consistent with trauma/prolapse negative for dysplasia and malignancy.? Frankly the appearance of the mass was concerning for colonic adenocarcinoma and the entirety of the mass could not be completely resected.? A follow-up/staging CT chest abdomen pelvis was performed November 07 and demonstrates moderate focal thickening within the descending/sigmoid colon junction with an apparent region of superimposed nodu larity measuring 15 mm.? No associated mesenteric lymphadenopathy there were incidental pulmonary nodules identified all less than 1 cm.? He is no abdominal pain nausea vomiting unintentional weight loss blood per rectum. History of a sigmoid colectomy for complicated diverticulitis with a colovesi cular fistula performed over 10 years ago in open fashion.? Additionally he is has history of prostate cancer status post radiation therapy followed by Dr. Mckeon of Urology Discharge Providers Provider Date of admission: 11/29/22 11:26 Discharge Date: 12/01/22 Primary care physician: Salas Stephens MD Consults: 11/29/22 17:57 Consult to Discharge Planning Routine Comment: Consult to Occupational Therapy Evaluate & Treat Comment: Physician Instructions: Evaluate and treat Consult to Physical Therapy Evaluate & Treat Comment: Physician Instructions: Evaluate and Treat Discharge provider: Terra Hdez MD Summary Hospital Course Discharge Diagnosis: Same Hospital Course: Mr. Waggoner had a attempted laparoscopic left hemicolectomy however due to scar tissue from previous diverticular disease anatomy was difficult and the need was found to proceed with an open procedure. Mr. Waggoner did very well postoperatively he was walking several laps around the [place] on postoperative day 1; his pain was controlled with p.o. pain medication and he was tolerating a regular diet on postoperative day 2. He felt very ready for discharge on pos toperative day 2 he had no pain no bloating no nausea and had eaten 2 solid meals. He therefore was discharged home in good condition with the usual postop instructions. Status at Discharge Cognitive/behavioral status at discharge: oriented Functional status at discharge: independent ambulation Time Spent with Patient Time spent: Less than 30 minutes Exam Vital Signs (past 8 hours): - 12/01/22 06:00 12/01/22 07:54 12/01/22 08:18 Temperature 98.8 F Pulse Rate 91 H Respiratory Rate 18 Blood Pressure 124/68 Pulse Oximetry 98 97 97 Oxygen Delivery Method Room Air Room Air Oxygen Flow Rate 0 12/01/22 10:53 12/01/22 11:09 Temperature 99.2 F Pulse Rate 75 Respiratory Rate 18 Blood Pressure 143/75 H Pulse Oximetry 97 95 Oxygen Delivery Method Room Air Oxygen Flow Rate 0 Oxygen Delivery Method Room Air Oxygen Flow Rate 0 Const General: cooperative, healthy appearing and comfortable Orientation: alert, awake and oriented x3 HENMT Head: normal to inspection Eyes General: appearance normal, both eyes and all related structures Neck Neck: normal visual inspection Resp Effort & Inspection: normal respiratory effort and able to speak in complete sentences GI Palpation: soft and tender (Appropriately) Other: Surgical donna are in place they are clean dry and intact. Objective Labs 12/01/22 04:25 12/01/22 04:25 Labs: Laboratory Results - last 24 hr 12/01/22 12/01/22 04:25 04:25 WBC 11.0 RBC 4.00 L Hgb 12.3 L Hct 35.8 L MCV 89.6 MCH 30.7 MCHC 34.2 RDW 13.2 Plt Count 202 Neut % (Auto) 84.7 H Lymph % (Auto) 7.2 L [place] % (Auto) 7.8 Eos % (Auto) 0.3 L Baso % (Auto) 0.0 Neut # (Auto) 9300 H Lymph # (Auto) 800 L [place] # (Auto) 900 Eos # (Auto) 0 Baso # (Auto) 0 Sodium 138 Potassium 3.5 Chloride 106 Carbon Dioxide 30 BUN 13 Creatinine 0.97 Estimated GFR > 60 BUN/Creatinine Ratio 13.4 Glucose 114 H Calcium 8.4 PFSH Medical History Anxiety about health Diverticular disease of colon Erectile dysfunction following radiation therapy H/O renal calculi Hemorrhoid History of malignant neoplasm of prostate (08/01/16) History of urethral stricture Kidney stones Lower urinary tract symptoms (LUTS) Membranous urethral stricture Pneumonia Surgical History History of excision of pilonidal cyst History of lithotripsy Hx of colectomy Hx of colonoscopy (11/05/22) Hx of cystoscopy (11/17/20) Hx of hernia repair S/P radiation therapy (~2013) Family History Father Cancer Hypertension Mother Stroke Social History marital status: unmarried,single household members: significant other Smoking Status: Current some day smoker alcohol intake: never substance use type: marijuana caffeine: Yes Discharge Assessment & Plan Assessment and Plan Assessment: Discharged home postoperative day 2 status post laparoscopic converted to open left hemicolectomy for a lesion found colonoscopy that had polyp type appearance and was partially obstructing. Plan of Treatment: He did very well postoperatively and was discharged in good condition with the normal discharge instructions Discharge Plan Discharge Plan Patient Disposition: Home Discharge orders & Medications Prescriptions: New acetaminophen 325 mg Tablet 650 mg PO Q6H Qty: 30 0RF oxycodone 5 mg Tablet 5 mg PO Q4HR Qty: 20 0RF Rx Instructions: You may take 1 or 2 tabs as needed every 4-6 hours for pain ibuprofen 600 mg tablet 600 mg PO QID Qty: 20 0RF Rx Instructions: Take with food. I recommend alternating ibuprofen and Tylenol. If you need to take some oxycodone in addition you may do so. Once you no longer need oxycodone at all then you can stop taking the ibuprofen and Tylenol over time. Please call the office if you have any questions about pain control or if you need an adjustment to your pain medicine regimen ondansetron 8 mg film 8 mg PO Q8H PRN (Reason: nausea and vomiting) Qty: 15 0RF Rx Instructions: Please contact physician if you are having severe nausea and vomiting. If you notice that when you take oxycodone you feel little bit nauseous you may take this medicine as needed with your oxycodone to prevent that. Continued alfuzosin 10 mg tablet extended release 24 hr See Rx Instructions .ROUTE .COMPLEX Qty: 90 3RF Dose Instruction: Take 1 tablet (10 mg) by mouth daily after the same meal each day Rx Instructions: Take 1 tablet (10 mg) by mouth daily after the same meal each day Discontinued metronidazole 500 mg tablet 1,000 mg PO .COMPLEX Qty: 4 0RF Rx Instructions: 1,000 mg PO 1 g PO; TAKE 2 tabs at 2 PM, and 10 PM the day prior to surgery; neomycin 500 mg tablet 500 mg PO NOW Patient Comments: 2pm and 10pm day before surgery Follow up/Referrals: Terra Hdez MD [Physician] - (This is the phone number for Dr. Muñoz's office as well. Please call the office 24/03 with any questions or concerns. After hours or on the weekends there is a surgeon on-call who is happy to answer any questions. Please stay on the line and send a message through the answering service. Please call Friday to arrange staple removal in 7-10 days after surgery.) Salas Stephens MD [Primary Care Provider] - Diet/Activity/Treatments Diet: Diet as Tolerated and Regular Activity: No lifting greater than 30 lb for 4 weeks after surgery. Do not do any strenuous activity. Normal activity such as walking outside and climbing stairs, is ok. If you notice pain, stop. You may drive when you no longer are taking Narcotic pain medication. Skin/Wound/Dressing Care Report to your healthcare provider any signs of infection, such as:: chills, fever, night sweats and increased pain Other wound treatment: Ok to shower, let water run over it, don't scrub. No ointments. Pat dry afterwards. No tub baths, and don't soak underwater, for 2 weeks. Surgical donna will need to be removed in 7-10 days after surgery. You may wear a binder as needed for comfort. If you need to place gauze over the wound because there was a small amount of drainage that is okay, but it may also be open to air Visit Report/Discharge Packet Instructions: DI for Cystoscopy, DI for Colectomy, DI for Laparoscopy, DI for Prescription Opioid Use, [facility]: Wound Care Stand Alone Forms: Patient Portal/API, Stroke Signs & Symptoms, Surgery Di scharge Discharge Data Primary Care Provider: Salas Stephens Discharges patient from system. Discharge Date/Time: 12/01/22 15:25 Quality VTE Deep Vein Thrombosis/Pulmonary Embolism Present on Admission: No
--- NOTE | 2022-12-01 14:10 | PC.NURSE ---
Day shift: Post-void bladder scan indicated no urine in bladder. Per MD d/c orders Pt can d/c home today. Pt to d/c home soon. Will go over paperwork with Pt and Pt's Spouse Marce.
--- NOTE | 2022-12-01 14:11 | CM.DPC ---
DCP Discharge Home Per Surgeon, pt medically stable to d/c home today with outpt f/u and no identified barriers to discharge. Per RN, pt has been ambulating independently in the hallways multiple times, tolerating general diet and no concerns noted. Plan: Patient to d/c home today via Sig Other POV and assist and outpt f/u and no further SW needs at this time. YAMIL Bangura
--- NOTE | 2022-12-01 15:22 | PC.NURSE ---
Day shift: Paperwork signed and all questions answered. Pt's SPouse in room for those teachings. Midline incision and lap sites are [employer] and show no s/s of infection. They are also not leaking any blood or fluid. Pt did not have the ABD binder in place at time of discharge. Pt has all personal belongings. scripts sent electronic to Pt's pharmacy. Taken to car via WC by this typewriter mechanic at approx 1515. Pt remains steady on his feet. Pt's Spouse is driving him home.
--- NOTE | 2022-12-24 07:46 | PM.OP.1 ---
Operative Date/Time/Diagnoses Date of procedure: 11/29/22 Time of procedure: 08:45 Pre-op diagnosis: 1. Colonic mass Post-op diagnosis: same Procedure & Clinicians Procedure: 1. Cystoscopy/placement bilateral illuminated ureteral stents Same procedure as scheduled: Yes Indications: 1. Colonic mass Surgeon: Tara Mckeon Click Yes if Unassisted: Yes Anesthesia Type: General Operative Notes Findings: 1. Urethra-normal caliber annular stricture or lesion. 2. External sphincter-coapted with normal overlying urothelium. 3. 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 4. Bladder-1+ trabeculation. Normal ureteral orifices bilaterally. Closure Type: not applicable Specimen(s): none sent Applied: other (Bilateral illuminated ureteral stents.) Estimated Blood Loss (mL): 0 Blood products transfused: none Procedure in detail: Patient was positioned supine was administered general anesthesia. He was then repositioned semi-lithotomy and the lower abdomen, genitalia, and groin were then prepped and draped in sterile fashion. Twenty-two Marshallese panendoscope was then passed the urinary tract findings as described above. A 0.35 hybrid guidewire was then advanced in the left ureteral orifice and advanced proximally under fluoroscopic guidance. Over this the illuminated ureteral stent sheath was advanced, again under fluoroscopic guidance. Appropriate measurements were made of the ureteral length. The same steps and maneuvers were performed on the right side after advancement of the eliminated filaments within the illuminated ureteral stent sheath. The bladder was drained and all instrumentation was removed. A 16 Marshallese Gustafson catheter was then inserted, balloon inflated 10 cc, then placed to gravity drainage. The illuminated ureteral stents were connected to 1 another with an Op site dressing and then secured to the light source in usual fashion. Dr. Muñoz then proceeded with his operative plan as detailed in his operative report. Complications: none Post-operative Condition: stable Disposition: Acute Care
== END 2022-12-01 15:25 | disposition home or self-care (01) | DRG 331 ==
PROVIDERS: Specialist; Surgery; Admitting Provider Surgery; PCP Internal Medicine; Referring Provider Surgery; Visit Provider Surgery
PROC: 0T788DZ Dilation of Bilateral Ureters with Intraluminal Device, Via Natural or Artificial Opening Endoscopic (ICD-10-PCS; principal; 2022-11-29 12:30)
PROC: 0DTE0ZZ Resection of Large Intestine, Open Approach (ICD-10-PCS; 2022-11-29 12:30)
DX: K63.89 Other specified diseases of intestine (principal); R11.0 Nausea; F17.200 Nicotine dependence, unspecified, uncomplicated; Z20.822 Contact with and (suspected) exposure to COVID-19; Z85.46 Personal history of malignant neoplasm of prostate
CPT/HCPCS: 36415; 44204; 74018; 76000; 80048; 83735; 84100; 85025; 87635; 94760; C9803; C9290; J0131; J0780; J1100; J1170; J1650; J1885; J2060; J2250; J2405; J2543; J2704; J3010; J3490

== ENCOUNTER → 2023-09-15 11:21 | Outpatient (CLI) | payer OTHER, SELFPAY ==
[2023-02-06 14:31] VITALS: BMI 25.9
[2023-09-15 12:47] LABS: Prostate Specific Antigen 1.07 ng/mL (0.10-4.00)
== END ==
PROVIDERS: PCP Internal Medicine; Referring Provider Specialist; Visit Provider Specialist
DX: R39.9 Unspecified symptoms and signs involving the genitourinary system (principal)
CPT/HCPCS: 36415; 84153

== ENCOUNTER → 2024-09-13 08:11 | Outpatient (CLI) | payer OTHER, SELFPAY ==
[2023-02-06 14:31] VITALS: BMI 25.9
[2024-09-13 09:46] LABS: Prostate Specific Antigen 0.899 ng/mL (0.10-4.00)
== END ==
PROVIDERS: PCP Internal Medicine; Referring Provider Urology; Visit Provider Urology
DX: R39.9 Unspecified symptoms and signs involving the genitourinary system (principal); Z87.448 Personal history of other diseases of urinary system
CPT/HCPCS: 36415; 84153

== ENCOUNTER → 2025-08-26 12:13 | Outpatient (CLI) | payer MEDICARE, SELFPAY ==
[2023-02-06 14:31] VITALS: BMI 25.9
[2025-08-26 13:44] LABS: Prostate Specific Antigen 1.05 ng/mL (0.10-4.00)
== END ==
PROVIDERS: PCP Internal Medicine; Referring Provider Urology; Visit Provider Urology
DX: Z85.46 Personal history of malignant neoplasm of prostate (principal)
CPT/HCPCS: 36415; 84153